=== PATIENT | female | born 1975 | race Caucasian/White ===

== ENCOUNTER → 2016-09-03 | Outpatient (CLI) | payer BC ==
[~2016-09-03] MED LIST: TOUJEO SOL300 UNIT/1 SUBQ; TRESIBA FL100 UNIT/1 SUBQ
--- NOTE | ~2016-09-03 | US5 ---
[facility] A Service of [facility] & [facility] RADIOLOGY TEXT RESULTS PATIENT: JOSE C ROMERO LOCATION: [facility] : [birth year] UNIT #: [id number] AGE: [address]: Jerson Coats MD SEX: F ORDER DR: [id number] [facility] [address] [place], [place] [address] [id number] O MR#: [id number] Acc #: [id number] NAME: JOSE C ROMERO : 1975 SEX: F STUDY DATE/TIME: 09/03/2016 11:28 UNIT: [facility] ROOM: STUDY DESCRIPTION: US Abdominal Complete Attending Physician: Jerson Coats M.D. Referring Physician: Jerson Coats M.D. Ordering Physician: Jerson Coats M.D. Primary Care Physician: No Primary Care Physician MEDICAL IMAGING REPORT This report is preliminary unless electronic signature is present EXAMINATION Complete abdominal ultrasound. DATE 09/03/2016 HISTORY Abdominal pain, nausea and vomiting for 1 week. Cramping. Bloating. COMPARISON None. FINDINGS Pancreas has a normal sonographic appearance. The liver demonstrates normal echotexture without focal abnormality. Abdominal aortic caliber is within normal limits measuring about 1.9 cm proximally. The abdominal aorta demonstrates normal color and spectral Doppler flow. IVC demonstrates normal color and spectral Doppler flow. Common bile duct caliber is normal, 2 mm. No intrahepatic biliary ductal dilation is seen. Right kidney measures 7.9 cm, and the left kidney measures 10.9 cm in length without focal cortical lesion, shadowing stone or hydronephrosis. The spleen size is within normal limits, 10.7 cm. The gallbladder is free of wall thickening or pericholecystic fluid. There may be a tiny quantity of gallbladder sludge. No definite shadowing gallstones are seen. Common bile duct caliber is normal, 5 mm. No intrahepatic biliary ductal dilation is identified. No ascites is evident. Liver size is within normal limits, 16.9 cm. No focal liver lesions are seen. IMPRESSION Questionable small quantity of gallbladder sludge. No definite gallstones or pericholecystic inflammation seen. Remainder of examination appears within normal limits. STS. [facility] A Service of [facility] & [facility] RADIOLOGY TEXT RESULTS PATIENT: JOSE C ROMERO LOCATION: [facility] #: [id number] : [birth year] UNIT #: [id number] AGE: [address]: Jerson Coats MD SEX: F ORDER DR: Dictated by... Niurka Charles M.D. THIS IS AN ELECTRONICALLY VERIFIED REPORT Niurka Charles M.D. at 09/09/2016 8:31 AM ZA/masha TD: 09/03/2016 17:35 JOB #: [id number] MEDICAL IMAGING REPORT Page 1 of 1 COPY
== END | disposition home or self-care (01) ==
LOC: CGUS 10:52 → CWCC 11:00
DX: R10.9 Unspecified abdominal pain (principal); R11.2 Nausea with vomiting, unspecified
CPT/HCPCS: 76700

== ENCOUNTER → 2016-09-29 | Outpatient (CLI) | payer BC ==
--- NOTE | ~2016-09-29 | NM22 ---
[facility] A Service of [facility] & [facility] RADIOLOGY TEXT RESULTS PATIENT: JOSE C ROMERO LOCATION: [facility] : [birth year] UNIT #: [id number] AGE: [address]: HANG BUNCH APRN SEX: F ORDER DR: [id number] [facility] [address] [place], [place] [address] [id number] O MR#: [id number] Acc #: [id number] NAME: JOSE C ROMERO : 1975 SEX: F STUDY DATE/TIME: 09/29/2016 10:00 UNIT: [facility] ROOM: STUDY DESCRIPTION: [place] Hepatobiliary W GB Pharm Attending Physician: Hang Bunch Aprn Referring Physician: Hang Bunch Aprn Ordering Physician: Hang Bunch Aprn Primary Care Physician: Primary Care Physician No MEDICAL IMAGING REPORT This report is preliminary unless electronic signature is present EXAM HIDA scan with Kinevac CCK 09/29/2016 HISTORY Right upper quadrant abdominal pain acute with epigastric pain, nausea, vomiting and abdominal bloating for 2 months. FINDINGS The patient received an intravenous injection of 6 mCi of technetium 99m tagged Choletec for hepatobiliary imaging. One hour following the injection of the radiopharmaceutical, the patient received an intravenous injection of 1.4 mcg of Kinevac. There is homogeneous distribution of the radiotracer throughout the liver. Gallbladder activity was seen by 30 minutes postinjection of the radiopharmaceutical. Following Kinevac injection, the gallbladder ejection fraction was 89.3% (normal is greater than 30%). IMPRESSION Normal HIDA scan with gallbladder ejection fraction of 89.3%. Dictated by... Sancho Gan M.D. THIS IS AN ELECTRONICALLY VERIFIED REPORT Sancho Gan M.D. at 09/30/2016 8:01 AM SONI/donna TD: 09/29/2016 12:14 JOB #: [id number] MEDICAL IMAGING REPORT Page 1 of 1 COPY
== END | disposition home or self-care (01) ==
LOC: CNUC 09:03
DX: R10.13 Epigastric pain (principal)
CPT/HCPCS: 78227; A9537; J2805

== ENCOUNTER → 2016-10-06 | Day surgery (SDC) | payer BC ==
--- NOTE | ~2016-10-06 | OR ---
Unit #: [id number] #: [id number] Patient: JOSE C ROMERO [id number] [address] [place], [place] [address] [id number] O MR#: [id number] NAME: JOSE C ROMERO ROOM: Date of Procedure: 10/06/2016 Admission Date: 10/06/2016 Surgeon: Lele Kahn M.D. : 1975 Attending Physician: Lele Kahn M.D. OPERATIVE REPORT PREOPERATIVE DIAGNOSES Dyspepsia, upper abdominal pain, as well as bloating and early satiety. PROCEDURES PERFORMED Upper gastrointestinal endoscopy and biopsy. POSTOPERATIVE DIAGNOSES 1. The patient had grade 1 to 2 distal erosive esophagitis with erosions at the Z-line in the distal esophagus. 2. Mild prepyloric antral gastritis. This was in the form of focal erythema in the antral area. 3. Rest of the examination up to third part of duodenum was normal. Biopsies were obtained from the antrum for CLOtest. RECOMMENDATIONS The patient is being started on once a day Dexilant 60 mg p.o. q.a.m. She will be followed up in the office in 6 to 8 weeks' time. SEDATION USED MAC. DESCRIPTION OF PROCEDURE Following detailed explanation of potential risks and complications of an upper endoscopy, namely perforation, bleeding, and complication related to sedation, the patient was brought to GI lab and left in the lateral decubitus position. Lubricated tip of the Olympus video upper endoscope was passed through the bite block into the proximal esophagus under direct vision. The entire esophageal mucosa was examined. The patient was noted to have grade 1 to grade 2 distal erosive esophagitis with erosions at the Z-line in the distal esophagus. The scope was then advanced into the gastric cavity and the latter was insufflated. Mucosa of the fundus, body, and antrum was examined and mild prepyloric antral erythema was noted. There were no erosions or ulcerations. Pylorus was intubated with visualization of the normal duodenal bulb and second and third part of the duodenum. Upon withdrawal and retroflexion; incisura, cardia, and greater curve was examined and a biopsy was obtained from the antrum for CLOtest. The scope was then withdrawn in the distal esophagus. The entire esophageal mucosa was examined all the way up to pharynx, no additional findings were noted. The patient tolerated the procedure without any postprocedure complications. Unit #: [id number] #: [id number] Patient: JOSE C ROMERO Dictated by..Tracy Godinez/esdras TD: 10/06/2016 13:08 JOB #: [id number] CC: Jerson Coats M.D. OPERATIVE REPORT Page 1 of 1 X Lele Kahn MD X PROCEDURE OPERATIVE NOTE
== END | disposition home or self-care (01) ==
LOC: COPS 09:19
DX: K22.10 Ulcer of esophagus without bleeding (principal); K29.70 Gastritis, unspecified, without bleeding; F17.210 Nicotine dependence, cigarettes, uncomplicated; E11.9 Type 2 diabetes mellitus without complications; Z79.4 Long term (current) use of insulin; Z98.51 Tubal ligation status
CPT/HCPCS: 82947; 87077; J2250

== ENCOUNTER → 2016-10-06 | Outpatient (CLI) | payer BC ==
[2016-10-06 09:09] LABS: HEMATOCRIT 45.8 % (35.0-45.0); HEMOGLOBIN 15.8 gm/dL (12.0-16.0); MEAN CELL VOLUME 88.7 FL (83-96); MEAN CORPUSCULAR HEMOGLOBIN 30.5 PG (28-34); MEAN CORPUSCULAR HGB CONC 34.5 g/dL (30-36); MEAN PLATELET VOLUME 8.6 FL (6.5-11.5); RED BLOOD COUNT 5.17 X10e (3.90-5.30); RED CELL DISTRIBUTION WIDTH 12.9 % (11.0-15.5); WHITE BLOOD COUNT 8.3 X10e3 (4.0-10.5)
[2016-10-06 09:36] LABS: ALBUMIN SERUM 3.9 g/dL (3.5-5.0); BILIRUBIN,TOTAL 0.5 mg/dL (0.2-2.0); BUN/CREATININE RATIO 18.75; CALCIUM SERUM 8.5 mg/dL (8.4-10.2); CREATININE SERUM 0.8 mg/dL (0.6-1.4); GLOM FILT RATE Estimated 93.6 mL/min (>60); POTASSIUM 4.3 mmol/L (3.5-5.1); PROTEIN TOTAL SERUM 6.3 g/dL (6.0-8.3)
== END | disposition home or self-care (01) ==
LOC: CLAB 08:47
PROVIDERS: Nurse Practitioner
DX: R10.13 Epigastric pain (principal); R11.0 Nausea
CPT/HCPCS: 36415; 80053; 83036; 85027